=== PATIENT | female | born 1950 | race Caucasian/White ===

== ENCOUNTER 2024-01-24 16:53 | Emergency (ER) | payer MEDICARE ==
[~2024-01-24] VITALS: Ht 157.5 cm; Wt 80.0 kg
[2024-01-24 17:11] VITALS: TEMP 99.6
[2024-01-24 18:04] LABS: BASOPHILS % (AUTO) 0.3 % (0-1); EOSINOPHILS % (AUTO) 0 % (0-6); HEMATOCRIT 43.4 % (35.0-45.0); HEMOGLOBIN 14.4 g/dl (12.0-16.0); LYMPHOCYTES # (AUTO) 0.6 X10'3 (1.1-4.8); LYMPHOCYTES % (AUTO) 4.5 % (21-51); MEAN CORPUSCULAR HEMOGLOBIN 29.6 PG (27.0-31.0); MEAN CORPUSCULAR HGB CONC 33.2 g/dL (33.0-36.5); MEAN CORPUSCULAR VOLUME 89.1 FL (78-98); MEAN PLATELET VOLUME 9.4 FL (7.4-10.4); MONOCYTES # (AUTO) 1.1 X10'3 (0-0.9); MONOCYTES % (AUTO) 7.7 % (2-12); NEUTROPHILS % (AUTO) 87.5 % (42-75); PLATELET COUNT 144 X10'3 (140-440); RED BLOOD COUNT 4.86 X10'6 (4.20-5.60); RED CELL DISTRIBUTION WIDTH 14.5 % (11.5-14.5); WHITE BLOOD COUNT 13.7 X10'3 (4.5-11.0)
[2024-01-24] MEDS: ketorolac trometh 15mg/ml vial 15 MG/ML ML IV ONE (18:06)
[2024-01-24 18:25] LABS: ALANINE AMINOTRANSFERASE 15 U/L (12-78); ALBUMIN 2.7 G/DL (3.4-5.0); ALBUMIN/GLOBULIN RATIO 0.7 (1.1-1.5); ALKALINE PHOSPHATASE 56 IU/L (46-116); ANION GAP 12 (8-16); ASPARTATE AMINO TRANSFERASE 18 U/L (10-37); BILIRUBIN,TOTAL 2.2 MG/DL (0.1-1.0); BLOOD UREA NITROGEN 18 MG/DL (7-18); BUN/CREATININE RATIO 16.7 (10.0-20.0); CALCIUM 8.4 MG/DL (8.5-10.1); CHLORIDE 95 MMOL/L (99-107); CREATININE 1.08 MG/DL (0.40-0.90); GLUCOSE 123 MG/DL (70-104); POTASSIUM 3.6 MMOL/L (3.5-5.1); SODIUM 130 MMOL/L (135-145); TOTAL CARBON DIOXIDE 23.4 MMOL/L (24-32); TOTAL PROTEIN 6.7 G/DL (6.4-8.2); URIC ACID 7.8 MG/DL (2.5-6.2); eCRCL 35 ML/MIN; eGFR 49 ML/MIN
[2024-01-24] MEDS ORDERED: COLC0.6C3 PO (18:50)
[2024-01-24] MEDS ORDERED: PRED50TA PO (18:50)
[2024-01-24] MEDS: methylPREDNISolone sod succ 125mg/2ml vial IV ONE (18:58)
[2024-01-24] MEDS: HYDROcodone/acetaminophen 5mg/325mg tablet PO ONE (18:59)
[2024-01-24 19:04] VITALS: BP 129/89; PULSE 89; RESP 18; O2SAT 98
== END 2024-01-24 19:19 | disposition home or self-care (01) ==
LOC: ER 16:54 → EDBD 16:54 → ER 19:19
DX: M10.9 Gout, unspecified (principal)
CPT/HCPCS: 36415; 73630; 80053; 84550; 85025; 96374; 96375; 99284; J1885; J2919